=== PATIENT | male | born 1985 | race African-American/Black ===

== ENCOUNTER → 2016-11-21 | Outpatient (CLI) | payer OTHER ==
--- NOTE | 2016-11-21 16:03 | CARD ---
APPROVED REPORT INDICATION Chest Pain PROCEDURE The patient underwent an Exercise Stress Test using the [employer] Protocol. Blood pressure, heart rate, a nd EKG were monitored. An Echocardiogram was performed by preparatory technician in four stages in quad fashion. At peak stress four se lected images were obtained and placed side by side with resting images for comparison. STRESS ECHO FINDINGS The resting Echocardiogram showed normal left ventricular contractility with an estimated Ejection Fr action of about 60 %. Normal augmentation of myocardial wall segments using a 16 segment model. Test Type: Exercise Stress Nurse/Tech: Florina Darling R.N. Test Indications: C/P Cardiac History and Allergies: NONE Medications: SEE EHR Medical History: SEE EHR Resting ECG: SB Resting Heart Rate: 57 bpm Resting Blood Pressure: 150/73mmHg Pretest Chest Pain: None Nurse/Tech Notes [id number] Stress Symptoms Dyspnea, chest pain, about 7 minutes in pt stated that he was having some light c/p scale 2/10- no ch anges in EKG noted. about 10 minutes in pt stated that c/p was more sharper scale 5/10 and he couldn' t go anymore. at the end of recovery period pt stated that c/p was down to a 1/10 and he felt much be tter. notified Dr. Pack of pt's c/p and upon looking at the ekg he was ok with pt going home. no te T wave becaome inverted in leads AVL and V2. T waves also became peaked in several leads post exer cise during recovery period. POST EXERCISE Reason for Termination: Reached target heart rate Target HR: Yes Max HR: 159 bpm 85% of Maximum Predicted HR: 187 bpm Exercise duration: 10.24 min:sec, 4 Stage Exercise capacity: 12.8METs Max Blood Pressure: 180/90mmHg Blood Pressure response to exercise: Normal blood pressure response during stress. Heart Rate response to exercise: wnl Chest Pain: Yes. see above note Arrhythmia: No. ST Change: No. INTERPRETATION Stress EKG Conclusion: Baseline EKG showed sinus rhythm. Non diagnostic changes at peak stress. No arrhythmias. RESTING ECG Rhythm: Sinus STRESS ECG Rhythm: Sinus Tachycardia Arrhythmias: None Preliminary Notification Critical Value: No <Conclusion> Treadmill exercise stress echocardiogram did not show any evidence of ischemia or infarct. Normal left ventricle systolic function with ejection fraction estimated at 60%. Patient had excellent activity tolerance. Low risk for cardiac events.
== END | disposition home or self-care (01) ==
LOC: ECHO 12:13
PROVIDERS: ATTEND Internal Medicine Cardiovascular Disease
DX: F43.9 Reaction to severe stress, unspecified (principal); R06.00 Dyspnea, unspecified; R00.0 Tachycardia, unspecified
CPT/HCPCS: 93017; 93350